=== PATIENT | male | born 1970 | race African-American/Black ===

== ENCOUNTER → 2023-04-17 | Emergency (ER) | payer BC ==
[~2023-04-17] MED LIST: CYCLOBENZAPRINE 10 MG TAB ONE; HYDROCODONE/APAP 10/325 TAB ONE; KETOROLAC 30 MG/ML INJ ONE; dexAMETHasone 10 MG/ML VIAL ONE
--- NOTE | 2023-04-17 18:00 | RAD REPORT ---
EXAM DESCRIPTION: CT - C Spine Wo Con - 04/17/2023 5:51 pm CLINICAL HISTORY: PAIN COMPARISON: No comparisons FINDINGS: The cervical vertebral body heights are maintained. Prominent posterior osteophyte/disc co mplex is present at C5-6 and C6-7. No evidence of acute cervical spine fracture or subluxation. Prevertebral soft tissues are normal in thickness. IMPRESSION: Negative for acute cervical spine abnormality. Moderate lower cervical degenerative spon dylosis. All CT scans are performed using dose optimization technique as appropriate and may include automated exposure control or mA/KV adjustment according to patient size.
--- NOTE | 2023-04-17 19:09 | ER ---
Nurse's Notes [facility] Name: Antonio Hutton Jr Age: 52 yrs Sex: Male : 1970 Arrival Date: 04/17/2023 Time: 17:15 Bed 11 Private MD: Diagnosis: Neck pain Presentation: 04/16 17:27 Chief complaint: Patient states: C/O pain to right side of neck/shoulder blade, down ld1 right arm. Pt went to urgent care and received Kenalog shot and Flexeril prescription - pt states "They did nothing and the pain is progressively getting worse." Denies injury. Coronavirus screen: At this time, the client does not indicate any symptoms associated with coronavirus-19. Ebola Screen: No symptoms or risks identified at this time. Initial Sepsis Screen: Does the patient meet any 2 criteria? No. Patient's initial sepsis screen is negative. Does the patient have a suspected source of infection? No. Patient's initial sepsis screen is negative. Risk Assessment: Do you want to hurt yourself or someone else? Patient reports no desire to harm self or others. Onset of symptoms was April 17, 2023. 17:27 Method Of Arrival: Ambulatory ld1 17:27 Acuity: JEYSON 4 ld1 Triage Assessment: 17:29 General: Appears in no apparent distress. uncomfortable, Behavior is cooperative, ld1 appropriate for age, anxious. Pain: Complains of pain in right sternocleidomastoid, neck and throat Pain does not radiate. Pain currently is 10 out of 10 on a pain scale. EENT: No signs and/or symptoms were reported regarding the EENT system. Neuro: Level of Consciousness is awake, alert, obeys commands, Oriented to person, place, time, situation. Cardiovascular: Capillary refill < 3 seconds Patient's skin is warm and dry. Respiratory: Airway is patent Respiratory effort is even, unlabored. GI: Abdomen is flat, distended, non-distended. Musculoskeletal: Range of motion: intact in all extremities. Historical: - Allergies: 17:29 No Known Allergies; ld1 - Home Meds: 17:29 None [Active]; ld1 - PMHx: 17:29 Hypercholesterolemia; ld1 - PSHx: 17:29 None; ld1 - Immunization history:: Adult Immunizations up to date. - Social history:: Smoking status: Patient denies any tobacco usage or history of. Patient/guardian denies using alcohol. - Family history:: not pertinent. Screenin:05 [facility] ED Fall Risk Assessment (Adult) History of falling in the last 3 months, mb9 including since admission No falls in past 3 months (0 pts) Confusion or Disorientation No (0 pts) Intoxicated or Sedated No (0 pts) Impaired Gait No (0 pts) Mobility Assist Device Used No (0 pt) Altered Elimination No (0 pt) Score/Fall Risk Level 0 - 2 = Low Risk Oriented to surroundings, Maintained a safe environment, Educated pt \\T\\ family on fall prevention, incl call for assistance when getting out of bed. Abuse screen: Denies threats or abuse. Nutritional screening: No deficits noted. Tuberculosis screening: No symptoms or risk factors identified. Assessment: 18:04 General: Appears in no apparent distress. Behavior is calm, cooperative. Pain: mb9 Complains of pain in neck Pain does not radiate. Neuro: Abel Agitation-Sedation Scale (RASS): 0 - Alert and Calm Level of Consciousness is awake, alert, obeys commands, Oriented to person, place, time, situation, Appropriate for age. Cardiovascular: Patient's skin is warm and dry. Respiratory: Airway is patent Respiratory effort is even, unlabored, Respiratory pattern is regular, symmetrical. GI: No signs and/or symptoms were reported involving the gastrointestinal system. : No signs and/or symptoms were reported regarding the genitourinary system. EENT: No signs and/or symptoms were reported regarding the EENT system. Derm: Skin is pink, warm \\T\\ dry. Musculoskeletal: Range of motion: intact in all extremities. 19:05 Reassessment: Patient and/or family updated on plan of care and expected duration. Pain mb9 level reassessed. Patient is alert, oriented x 3, equal unlabored respirations, skin warm/dry/pink. Patient states feeling better. Patient states symptoms have improved. Vital Signs: 17:27 BP 170 / 95; Pulse 76; Resp 18; Temp 97.6(TE); Pulse Ox 98% on R/A; Weight 108.86 kg; ld1 Height 5 ft. 10 in. ; Pain 9/10; 18:44 BP 158 / 86; Pulse 74; Resp 16; Pulse Ox 100% on R/A; mb9 17:27 Body Mass Index 34.44 (108.86 kg, 177.8 cm) ld1 17:27 Pain Scale: Adult ld1 ED Course: 17:18 Patient arrived in ED. mr 17:20 Van Reynoso MD is Attending Physician. rt 17:29 Triage completed. ld1 17:29 Arm band placed on right wrist. ld1 17:53 CT C Spine In Process Unspecified. EDMS 18:04 Marsha Spring, SASCHA is Primary Nurse. mb9 18:05 Placed in gown. Bed in low position. Call light in reach. Side rails up X 1. Client mb9 placed on continuous cardiac and pulse oximetry monitoring. NIBP monitoring applied. 18:05 No provider procedures requiring assistance completed. mb9 19:06 Patient did not have IV access during this emergency room visit. mb9 Administered Medications: 18:04 Drug: [facility] PO 10 mg-325 mg 1 tabs PO once Route: PO; mb9 18:39 Follow up: Response: No adverse reaction mb9 18:04 Drug: Ketorolac IM 15 mg IM once Route: IM; Site: right deltoid; mb9 18:41 Follow up: Response: No adverse reaction mb9 18:04 Drug: Cyclobenzaprine PO 10 mg PO once Route: PO; mb9 18:40 Follow up: Response: No adverse reaction mb9 18:04 Drug: Dexamethasone IM 10 mg IM once Route: IM; Site: left deltoid; mb9 18:41 Follow up: Response: No adverse reaction mb9 Medication: 18:05 VIS not applicable for this client. mb9 Outcome: 19:09 Discharge ordered by . rt 19:14 Discharged to home ambulatory, mb9 19:14 Condition: stable 19:14 Discharge instructions given to patient, Instructed on discharge instructions, follow up and referral plans. Demonstrated understanding of instructions, follow-up care, medications, Prescriptions given X 2, 19:14 Patient left the ED. mb9 Signatures: Dispatcher [employer] EDMA Marsha Rebolledo, Reg Reg mr LopezJoellen, RN RN [email or web address] Marsha Spring, RN RN [email or web address] Van Reynoso MD MD rt Corrections: (The following items were deleted from the chart) 17:30 17:29 PMHx: None; ld1 ld1 19:05 18:44 Reassessment: Patient and/or family updated on plan of care and expected mb9 duration. Pain level reassessed. Patient is alert, oriented x 3, equal unlabored respirations, skin warm/dry/pink. Patient states feeling better. Patient states symptoms have improved. mb9
--- NOTE | 2023-04-17 19:09 | EDPHYS ---
Physician Documentation [facility] Name: Antonio Hutton Jr Age: 52 yrs Sex: Male : 1970 Arrival Date: 04/17/2023 Time: 17:15 Bed 11 Private MD: ED Physician Van Reynoso HPI: 04/16 17:39 This 52 yrs old Black Male presents to ER via Ambulatory with complaints of Back Pain. rt 17:39 Patient presents to the ED with pain to the right side of the neck that has been going rt on for about 2 weeks now. Is been progressively worsening. Patient went to an urgent care, received a Kenalog and Flexeril shot, has been taking Flexeril with no relief. States that the pain continues to worsen. Patient states that radiates down to his right shoulder. Denies other acute complaints at this time, symptoms are moderate severity, aching nature, no other aggravating or alleviating factors.. Historical: - Allergies: 17:29 No Known Allergies; ld1 - Home Meds: 17:29 None [Active]; ld1 - PMHx: 17:29 Hypercholesterolemia; ld1 - PSHx: 17:29 None; ld1 - Immunization history:: Adult Immunizations up to date. - Social history:: Smoking status: Patient denies any tobacco usage or history of. Patient/guardian denies using alcohol. - Family history:: not pertinent. ROS: 17:39 Constitutional: Negative for fever, chills, and weight loss, Cardiovascular: Negative rt for chest pain, palpitations, and edema, Respiratory: Negative for shortness of breath, cough, wheezing, and pleuritic chest pain, Abdomen/GI: Negative for abdominal pain, nausea, vomiting, diarrhea, and constipation, Skin: Negative for injury, rash, and discoloration, Neuro: Negative for headache, weakness, numbness, tingling, and seizure, Psych: Negative for depression, anxiety, suicide ideation, homicidal ideation, and hallucinations, 17:39 Neck: Positive for pain with movement, pain at rest, Negative for injury or acute deformity, Exam: 17:39 Constitutional: This is a well developed, well nourished patient who is awake, alert, rt and in no acute distress. Head/Face: Normocephalic, atraumatic. Chest/axilla: Normal chest wall appearance and motion. Nontender with no deformity. No lesions are appreciated. Cardiovascular: Regular rate and rhythm with a normal S1 and S2. No gallops, murmurs, or rubs. Normal PMI, no JVD. No pulse deficits. Respiratory: Lungs have equal breath sounds bilaterally, clear to auscultation and percussion. No rales, rhonchi or wheezes noted. No increased work of breathing, no retractions or nasal flaring. Abdomen/GI: Soft, non-tender, with normal bowel sounds. No distension or tympany. No guarding or rebound. No evidence of tenderness throughout. Skin: Warm, dry with normal turgor. Normal color with no rashes, no lesions, and no evidence of cellulitis. MS/ Extremity: Pulses equal, no cyanosis. Neurovascular intact. Full, normal range of motion. Neuro: Awake and alert, GCS 15, oriented to person, place, time, and situation. Cranial nerves II-XII grossly intact. Motor strength 5/5 in all extremities. Sensory grossly intact. Cerebellar exam normal. Normal gait. 17:39 Neck: Tenderness over right superior trapezius muscle, no midline tenderness, no step-offs, Vital Signs: 17:27 BP 170 / 95; Pulse 76; Resp 18; Temp 97.6(TE); Pulse Ox 98% on R/A; Weight 108.86 kg; ld1 Height 5 ft. 10 in. ; Pain 9/10; 18:44 BP 158 / 86; Pulse 74; Resp 16; Pulse Ox 100% on R/A; mb9 17:27 Body Mass Index 34.44 (108.86 kg, 177.8 cm) ld1 17:27 Pain Scale: Adult ld1 MDM: 17:35 Patient medically screened. rt 19:32 Differential diagnosis: This disease, arthritic changes, radicular pain. Data reviewed: rt vital signs, nurses notes, radiologic studies. I considered the following discharge prescriptions or medication management in the emergency department Medications were administered in the Emergency Department. See MAR. Independent interpretation of the following test(s) in the Emergency Department CT Scan: My interpretation is No fracture seen on interpretation of CT scan images. Counseling: I had a detailed discussion with the patient and/or guardian regarding the historical points, exam findings, and any diagnostic results supporting the discharge/admit diagnosis, radiology results, the need for outpatient follow up, to return to the emergency department if symptoms worsen or persist or if there are any questions or concerns that arise at home. Response to treatment: the patient's symptoms have markedly improved after treatment. 04/16 17:36 Order name: CT C Spine; Complete Time: 18:04 rt Administered Medications: 18:04 Drug: [place] PO 10 mg-325 mg 1 tabs PO once Route: PO; mb9 18:39 Follow up: Response: No adverse reaction mb9 18:04 Drug: Ketorolac IM 15 mg IM once Route: IM; Site: right deltoid; mb9 18:41 Follow up: Response: No adverse reaction mb9 18:04 Drug: Cyclobenzaprine PO 10 mg PO once Route: PO; mb9 18:40 Follow up: Response: No adverse reaction mb9 18:04 Drug: Dexamethasone IM 10 mg IM once Route: IM; Site: left deltoid; mb9 18:41 Follow up: Response: No adverse reaction mb9 Disposition Summary: 04/17/23 19:09 Discharge Ordered Notes: Location: Home rt Problem: new rt Symptoms: have improved rt Condition: Stable rt Diagnosis - Neck pain rt Followup: rt - With: Private Physician - When: 2 - 3 days - Reason: Discharge Instructions: - Discharge Summary Sheet rt - Cervical Radiculopathy rt Forms: - Medication Reconciliation Form rt - Thank You Letter rt - Antibiotic Education rt - Prescription Opioid Use rt - Patient Portal Instructions rt - Leadership Thank You Letter rt Prescriptions: - gabapentin 100 mg Oral capsule - take 1 capsule ORAL route every 8 hours; 30 capsule; Refills: 0, Product rt Selection Permitted - Tramadol 50 mg Oral tablet - take 1 tablet ORAL route every 8 hours as needed; 18 tablet; Refills: 0, rt Product Selection Permitted Signatures: Dispatcher [employer] Joellen Rangel RN RN ld1 Marsha Spring RN RN mb9 Van Reynoso MD MD rt Corrections: (The following items were deleted from the chart) 17:30 17:29 PMHx: None; ld1 ld1
[2023-04-17 19:39] VITALS: BP 158/86; TEMP 97.6; O2SAT 100
== END ==
LOC: ER 17:15
DX: M54.2 Cervicalgia (principal)
CPT/HCPCS: 72125; J1100